=== PATIENT | female | born 1950 | race Caucasian/White ===

== ENCOUNTER 2016-08-31 01:04 | Emergency (ER) | payer MEDICARE ==
[~2016-08-31 01:04] MED LIST: ABILIFY2 MG PO; BAYER CHEWABLE81 MG PO; CALCIUM 500 + D1 TAB PO; DEPAKOTE250 MG PO; EFFEXOR75 MG PO; MIRALAX17 GM PO; NORCO 7.5/325 T1 TA1 PO; NORVASC5 MG PO; SENNA PLUS TA1 UDTAB PO; TENORMIN25 MG PO; TRAZODONE HCL50 MG PO; VITAMIN C1000 MG PO; ZOFRAN4 MG PO
== END 2016-08-31 02:03 | disposition home or self-care (01) ==
LOC: D.ER 01:04
DX: S00.83XA Contusion of other part of head, initial encounter (principal); W01.0XXA Fall on same level from slipping, tripping and stumbling without subsequent striking against object, initial encounter; Y93.9 Activity, unspecified; Y92.129 Unspecified place in nursing home as the place of occurrence of the external cause; G30.9 Alzheimer's disease, unspecified; F02.80 Dementia in other diseases classified elsewhere, unspecified severity, without behavioral disturbance, psychotic disturbance, mood disturbance, and anxiety; F31.9 Bipolar disorder, unspecified; K21.9 Gastro-esophageal reflux disease without esophagitis

== ENCOUNTER 2016-08-31 06:52 | Emergency (ER) | payer MEDICARE | END 2016-08-31 10:10 | disposition home or self-care (01) | LOC: D.ER 06:52 | DX: S01.81XA Laceration without foreign body of other part of head, initial encounter (principal); W19.XXXA Unspecified fall, initial encounter; Y93.89 Activity, other specified; Y92.129 Unspecified place in nursing home as the place of occurrence of the external cause; G30.9 Alzheimer's disease, unspecified; F02.80 Dementia in other diseases classified elsewhere, unspecified severity, without behavioral disturbance, psychotic disturbance, mood disturbance, and anxiety; F31.9 Bipolar disorder, unspecified; K21.9 Gastro-esophageal reflux disease without esophagitis ==

== ENCOUNTER 2016-09-02 13:32 | Emergency (ER) | payer MEDICARE | END 2016-09-02 15:04 | disposition home or self-care (01) | LOC: D.ER 13:32 | DX: I60.9 Nontraumatic subarachnoid hemorrhage, unspecified (principal); S32.501A Unspecified fracture of right pubis, initial encounter for closed fracture; W19.XXXA Unspecified fall, initial encounter; Y93.89 Activity, other specified; Y92.129 Unspecified place in nursing home as the place of occurrence of the external cause; G30.9 Alzheimer's disease, unspecified; F02.80 Dementia in other diseases classified elsewhere, unspecified severity, without behavioral disturbance, psychotic disturbance, mood disturbance, and anxiety; F31.9 Bipolar disorder, unspecified ==

== ENCOUNTER → 2016-09-04 07:55 | Outpatient (CLI) | payer MEDICARE | END | disposition home or self-care (01) | LOC: D.CT 07:55 | DX: I60.9 Nontraumatic subarachnoid hemorrhage, unspecified (principal) ==